=== PATIENT | female | born 1965 | race Caucasian/White ===

== ENCOUNTER 2018-08-18 15:42 | Outpatient (CLI) | payer OTHER ==
--- NOTE | 2018-08-18 16:22 | RAD ---
Exam: Right knee 4 views: HISTORY: Rheumatoid arthritis with out rheumatoid factor, right knee pain COMPARISON: None FINDINGS: Degenerative and osteophytosis changes of the right knee involving all 3 compartments. No acute fract ure or dislocation. IMPRESSION: Degenerative and osteoarthrosis changes without fracture or dislocation.
--- NOTE | 2018-08-18 16:23 | RAD ---
Exam: Left knee 4 views: HISTORY: Rheumatoid arthritis without rheumatoid factor, knee pain Findings and impression: Arthrosis and degenerative changes. 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 No fracture or dislocation or other acute process.
--- NOTE | 2018-08-18 16:23 | RAD ---
Right foot 3 views INDICATION: Rheumatoid arthritis COMPARISON: None FINDINGS: No acute fracture or subluxation is evident. The Lisfranc alignment appears within normal l imits. Soft tissues are normal appearing. There is mild osteoarthrosis involving the forefoot particularly within the great toe MTP joint. Norbert ne mineralization appears within normal limits. No active periarticular erosive change is evident. Enthesopathic changes seen off the calcaneus. There is an accessory ossicle seen adjacent to the cubo id. IMPRESSION: No active periarticular erosive change demonstrated.
== END 2018-08-18 15:43 | disposition home or self-care (01) ==
LOC: BICRAD 15:42
DX: M06.09 Rheumatoid arthritis without rheumatoid factor, multiple sites (principal); M17.0 Bilateral primary osteoarthritis of knee